=== PATIENT | male | born 1995 | race Two or more races ===

== ENCOUNTER 2021-04-28 19:30 | Emergency (ER) | payer OTHER ==
--- NOTE | 2021-04-28 19:43 | NUR ---
Patient BIB [facility] from [facility]. Per report by RA patient was walking down hallway in the facility when a staff member saw him callapse. He had pinpoint, pupils, apnea and was given 4mg of narcan x2 with CPR. Upon arrival of RA patient was aake and answering questions. Refused blood sugar on the field. Upon arrival to ER patient speaking clearly and requesting to sign out AMA. Patient placed in room 1a, ambulatory with steady gait, A/Ox3. No distress noted. Refused to be traiged.
--- NOTE | 2021-04-28 19:50 | NUR ---
ERMD evaluating patient.
--- NOTE | 2021-04-28 20:14 | NUR ---
Patient does not wish to proceed with medical care recommended by Dr. Maharaj ). Patient given information related to possible complications, up to and including , which could occur as a result of leaving the hospital at this time. Patient verbalizes understanding of risks involved due to leaving against medical advice. Patient has signed AMA form.
== END 2021-04-28 20:17 | disposition left against medical advice (07) ==
LOC: ER 19:34
DX: T40.411A Poisoning by fentanyl or fentanyl analogs, accidental (unintentional), initial encounter (principal); R41.0 Disorientation, unspecified; F11.10 Opioid abuse, uncomplicated; Y92.199 Unspecified place in other specified residential institution as the place of occurrence of the external cause
CPT/HCPCS: A4663